=== PATIENT | male | born 1950 | race Caucasian/White ===

== ENCOUNTER 2018-07-25 15:57 | Emergency (ER) | payer MEDICARE, OTHER ==
[2018-07-25 16:08] VITALS: BP 134/80
[2018-07-25] MEDS ORDERED: Sodium Chloride 0.9% 10 ML Syringe FLUSH PRN (16:18)
--- NOTE | 2018-07-25 16:31 | CR ---
Clinical history: 67-year-old male chest pain. Interpretation: No acute cardiopulmonary abnormality. Less than optimal his story effort upright AP portable chest. External receivable executive leads. Left-si ded aortic arch. No cephalization of flow normal cardiac silhouette. No alveolar edema or dependent effusion. No lung mass or hilar lymphadenopathy. No lobar pneumonia, atelectasis or collapse. No pneumothorax or free subdiaphragmatic air.
[2018-07-25 16:47] LABS: ANION GAP 12.2; CHLORIDE,CL 101 mmol/L (101-111); SODIUM,NA 136 mmol/L (135-145)
[2018-07-25] MEDS ORDERED: GI Cocktail Oral Solution 30 ML PO ONE (17:01)
--- NOTE | 2018-07-25 17:02 | EDM.PDOC ---
ED HPI GENERAL MEDICAL PROBLEM - General Chief Complaint: Chest Pain Stated Complaint: CHEST PAIN Time Seen by Provider: 07/25/18 16:44 Source of Information: Reports: Patient, RN, RN Notes Reviewed History Limitations: Reports: No Limitations - History of Present Illness INITIAL COMMENTS - FREE TEXT/NARRATIVE: Patient presents to ER with complaint of chest pain. He states he has been having chest pain across the upper chest for the past 3-4 days. States he feels it is from indigestion. Today has had dizziness and worsening chest pain. Has been using Gaviscon, which causes diarrhea. He ate potato salad with onions today. He has had a headache, cough (dry) and eyes are sore. Onset: Gradual Duration: Getting Worse Location: Reports: Chest Quality: Reports: Ache Severity: Moderate Improves with: Reports: None Worsens with: Reports: None Associated Symptoms: Reports: No Other Symptoms Bilateral Upper Chest Pain Score (Numeric/FACES): 3 - Related Data Allergies Allergy/AdvReac Type Severity Reaction Status Date / Time pentazocine [From [place]] Allergy Cannot Verified 07/25/18 16:09 Remember Home Meds: Home Meds Carvedilol 3.125 mg PO BID 03/22/17 [History] Ibuprofen [Ibuprofen Ib] 400 mg PO Q6HR PRN 03/22/17 [History] Lisinopril 5 mg PO DAILY 03/22/17 [History] Mag Carb/Al Hydrox/Alginic Ac [Gaviscon Liquid] 5 ml PO Q4H PRN 03/22/17 [ History] Nitroglycerin [Nitrostat] 0.4 mg SL ASDIRECTED PRN 03/22/17 [History] diphenhydrAMINE HCl [Diphenhydramine HCl] 25 mg PO ASDIRECTED PRN 03/22/17 [ History] Past Medical History HEENT History: Reports: Hard of Hearing, Impaired Vision Cardiovascular History: Reports: CAD, Cardiomyopathy, PTCA, Stents (x3, maker, decreased ejection fraction.) Musculoskeletal History: Reports: Arthritis, Back Pain, Chronic Psychiatric History: Reports: PTSD Dermatologic History: Reports: None - Past Surgical History Cardiovascular Surgical History: Reports: Coronary Artery Stent Dermatological Surgical History: Reports: Skin Biopsy Social & Family History - Tobacco Use Smoking Status *Q: Never Smoker Second Hand Smoke Exposure: No - Recreational Drug Use Recreational Drug Use: No ED ROS GENERAL - Review of Systems Review Of Systems: ROS reveals no pertinent complaints other than HPI. ED EXAM, GENERAL - Physical Exam Exam: See Below Exam Limited By: No Limitations General Appearance: Alert, WD/WN, No Apparent Distress Eye Exam: Bilateral Eye: EOMI, Normal Inspection, PERRL Ears: Normal External Exam, Normal Canal, Hearing Grossly Normal, Normal TMs Nose: Normal Inspection, Normal Mucosa, No Blood Throat/Mouth: Normal Inspection, Normal Lips, Normal Teeth, Normal Gums, Normal Oropharynx, Normal Voice, No Airway Compromise Head: Atraumatic, Normocephalic Neck: Normal Inspection, Supple, Non-Tender, Full Range of Motion Respiratory/Chest: No Respiratory Distress, Lungs Clear, Normal Breath Sounds, No Accessory Muscle Use, Chest Non-Tender Cardiovascular: Normal Peripheral Pulses, Regular Rate, Rhythm, No Edema, No Gallop, No JVD, No Murmur, No Rub GI/Abdominal: Other (epigastric tender) (Male) Exam: Deferred Rectal (Males) Exam: Deferred Back Exam: Normal Inspection Extremities: Other (shoulder arthritic) Neurological: Alert, Oriented, CN II-XII Intact, Normal Cognition, Normal Gait, Normal Reflexes, No Motor/Sensory Deficits Psychiatric: Normal Affect, Normal Mood Skin Exam: Warm, Dry, Intact, Normal Color, No Rash Lymphatic: No Adenopathy EKG INTERPRETATION EKG Date: 07/26/18 Time: 16:08 Rhythm: NSR Rate (Beats/Min): 64 [place]: Normal P-Wave: Present QRS: Normal ST-T: Normal QT: Normal Comparison: NA - No Prior EKG Course - Vital Signs Last Recorded V/S: Last Vital Signs Temp 97.6 F 07/25/18 16:05 Pulse 71 07/25/18 16:05 Resp 18 07/25/18 16:05 BP 134/80 07/25/18 16:05 Pulse Ox 98 07/25/18 16:05 - Orders/Labs/Meds Orders: Active Orders 24 hr Category Date Time Status EKG Documentation Completion [RC] STAT Care 07/25/18 16:17 Active Peripheral IV Care [RC] . DIRECTED Care 07/25/18 16:18 Active Peripheral IV Insertion Adult [OM.PC] Routine Oth 07/25/18 16:18 Ordered Labs: Laboratory Tests 07/25/18 07/25/18 Range/Units 16:20 16:20 WBC 6.6 (5.0-10.0) 10^3/uL RBC 4.33 L (4.6-6.2) 10^6/uL Hgb 13.5 L (14.0-18.0) g/dL Hct 41.5 (40.0-54.0) % MCV 95.8 (80-100) fL MCH 31.2 (27.0-34.0) pg MCHC 32.5 L (33.0-35.0) g/dL Plt Count 137 L (150-450) 10^3/uL Neut % (Auto) 70.1 (42.2-75.2) % Lymph % (Auto) 22.1 (20.5-50.1) % [place] % (Auto) 6.5 (2-8) % Eos % (Auto) 1.1 (1.0-3.0) % Baso % (Auto) 0.2 (0.0-1.0) % Sodium 136 (135-145) mmol/L Potassium 4.2 (3.6-5.0) mmol/L Chloride 101 (101-111) mmol/L Carbon Dioxide 27.0 (21.0-31.0) mmol/L Anion Gap 12.2 BUN 26 H (7-18) mg/dL Creatinine 1.0 (0.6-1.3) mg/dL Est Cr Clr Drug Dosing 83.33 mL/min Estimated GFR (MDRD) > 60 BUN/Creatinine Ratio 26.00 Glucose 144 H (74-105) mg/dL Calcium 9.0 (8.4-10.2) mg/dl Total Bilirubin 1.7 H (0.2-1.0) mg/dL AST 28 (10-42) IU/L ALT 35 (10-60) IU/L Alkaline Phosphatase 61 (42-121) IU/L Troponin I < 0.02 (0.00-0.02) ng/ml Total Protein 6.9 (6.7-8.2) g/dl Albumin 4.1 (3.2-5.5) g/dl Globulin 2.8 Albumin/Globulin Ratio 1.46 Meds: Medications Discontinued Medications Generic Name Dose Route Start Last Admin Trade Name Freq PRN Reason Stop Dose Admin Al Hydroxide/Mg Hydroxide 30 ml 07/25/18 17:01 07/25/18 17:05 Gi Cocktail PO 07/25/18 17:02 30 ml ONETIME ONE Administration Sodium Chloride 10 ml 07/25/18 16:18 07/25/18 16:22 Saline Flush FLUSH 10 ml ASDIRECTED PRN Administration Keep Vein Open - Radiology Interpretation Free Text/Narrative:: Chest xray: No acute findings See rad report Departure - Departure Time of Disposition: 17:53 Disposition: Home, Self-Care 01 Condition: Good Clinical Impression: Acid reflux Qualifiers: Esophagitis presence: without esophagitis Qualified Code(s): K21.9 - Gastro- esophageal reflux disease without esophagitis Instructions: Indigestion, [id number], Food Choices for Gastroesophageal Reflux Disease, Adult, Nonspecific Chest Pain, [id number], Gastroesophageal Reflux Disease, Adult, [id number] Referrals: PCP,None [Primary Care Provider] - Forms: ED Department Discharge Additional Instructions: Follow up with your primary care facility Drink plenty of fluids Return to the ER with any further problems - My Orders Last 24 Hours: My Active Orders 07/25/18 16:17 EKG Documentation Completion [RC] STAT 07/25/18 16:18 Peripheral IV Care [RC] . DIRECTED Peripheral IV Insertion Adult [OM.PC] Routine - Assessment/Plan Last 24 Hours: My Active Orders 07/25/18 16:17 EKG Documentation Completion [RC] STAT 07/25/18 16:18 Peripheral IV Care [RC] . DIRECTED Peripheral IV Insertion Adult [OM.PC] Routine
== END 2018-07-25 18:01 | disposition home or self-care (01) ==
LOC: DL.ED 15:57
DX: K21.9 Gastro-esophageal reflux disease without esophagitis (principal); Z79.899 Other long term (current) drug therapy; Z88.8 Allergy status to other drugs, medicaments and biological substances
CPT/HCPCS: 36415; 71045; 80053; 84484; 85025; 93005; 99285; A9270; J7050